=== PATIENT | male | born 1975 | race Caucasian/White ===

== ENCOUNTER 2017-03-29 18:43 | Emergency (ER) | payer BC, OTHER ==
[2017-03-29 18:43] VITALS: BMI 22.5
[2017-03-29 19:06] VITALS: BP 115/77; PULSE 88; RESP 16; TEMP 98; O2SAT 98
[2017-03-29] MEDS ORDERED: Oxycodone/Acetaminophen 5/325 mg Tab PO STA (20:54)
--- NOTE | 2017-03-29 21:13 | CT ---
EXAM: CT Lumbar Spine Without Intravenous Contrast CLINICAL HISTORY: 42 years old, male; Pain; Low back pain TECHNIQUE: Axial computed tomography images of the lumbar spine without intravenous contrast. All CT scans at this facility use one or more dose reduction techniques, viz.: automated exposure control; ma/kV adjustment per patient size (including targeted exams where dose is matched to indication; i.e. head); or iterative reconstruction technique. Coronal and sagittal reformatted images were created and reviewed. COMPARISON: No relevant prior studies available. FINDINGS: Vertebrae: No acute fracture. Discs/spinal canal/neural foramina: Moderate degenerative disc disease at L2-L3 level. No significant spinal stenosis. Soft tissues: Unremarkable. IMPRESSION: 1. No fracture. 2. If back pain persists, consider MRI for further evaluation. 3. Incidental/non-acute findings are described above.
--- NOTE | 2017-03-29 21:32 | ED PDOC ---
Arrival/HPI - General Chief Complaint: Back Pain Time Seen by Provider: 03/29/17 19:10 Historian: Patient - History of Present Illness Narrative History of Present Illness (Text): 03/29/17 19:30 Ciaran Gilbert is a 42 year old male who presents to the Emergency department complaining of lower back pain. Patient states back pain is worse with bending and movement. 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 Patient also notes he played soccer a few days prior and believes he may have puller a muscle in her back. Patient now complaining of severe back pain. Patient denies any weakness/numbness/tingling in the extremity, saddle paresthesias, neck pain, headache, dizziness, or any other complaints. Symptom Onset: Gradual Symptom Course: Unchanged Activities at Onset: Light Context: Home Past Medical History - Provider Review Nursing Documentation Reviewed: Yes - Tetanus Immunization Tetanus Immunization: Unknown - Past Medical History Past Medical History: No Previous - Psychiatric Hx Psychophysiologic Disorder: No Hx Substance Use: Yes (CANNABIS) - Past Surgical History Past Surgical History: No Previous - Suicidal Assessment Feels Threatened In Home Enviroment: No Family/Social History - Physician Review Nursing Documentation Reviewed: Yes Family/Social History: Unknown Family HX Smoking Status: Light Smoker < 10 Cigarettes Daily Hx Alcohol Use: No Hx Substance Use: Yes (CANNABIS) Allergies/Home Meds Allergies/Adverse Reactions: Allergies No Known Allergies Allergy (Verified 03/29/17 19:01) Review of Systems - Physician Review All systems were reviewed & negative as marked: Yes - Review of Systems Constitutional: Normal. absent: Fevers Eyes: Normal ENT: Normal Respiratory: Normal. absent: SOB, Cough Cardiovascular: Normal. absent: Chest Pain Gastrointestinal: Normal. absent: Abdominal Pain, Diarrhea, Nausea, Vomiting Genitourinary Male: Normal. absent: Dysuria, Frequency, Hematuria, Urinary Output Changes Musculoskeletal: Back Pain. absent: Neck Pain Skin: Normal. absent: Rash Neurological: Normal. absent: Headache, Dizziness Endocrine: Normal Hemo/Lymphatic: Normal Psychiatric: Normal Physical Exam Vital Signs Reviewed: Yes Vital Signs Temp Pulse Resp BP Pulse Ox 03/29/17 19:05 98.0 F 88 16 115/77 98 Temperature: Afebrile Blood Pressure: Normal Pulse: Regular Respiratory Rate: Normal Appearance: Positive for: Well-Appearing, Non-Toxic, Comfortable Pain Distress: None Mental Status: Positive for: Alert and Oriented X 3 - Systems Exam Head: Present: Atraumatic, Normocephalic Pupils: Present: PERRL Extroacular Muscles: Present: EOMI Conjunctiva: Present: Normal Mouth: Present: Moist Mucous Membranes Neck: Present: Normal Range of Motion Respiratory/Chest: Present: Clear to Auscultation, Good Air Exchange. No: Respiratory Distress, Accessory Muscle Use Cardiovascular: Present: Regular Rate and Rhythm, Normal S1, S2. No: Murmurs Abdomen: Present: Normal Bowel Sounds. No: Tenderness, Distention, Peritoneal Signs Back: Present: Pain with Leg Raise (Pain with righ straight leg raising). No: Midline Tenderness, Paraspinal Tenderness Upper Extremity: Present: Normal Inspection. No: Cyanosis, Edema Lower Extremity: Present: Normal Inspection. No: Edema Neurological: Present: GCS=15, CN II-XII Intact, Speech Normal Skin: Present: Warm, Dry, Normal Color. No: Rashes Psychiatric: Present: Alert, Oriented x 3, Normal Insight, Normal Concentration Medical Decision Making ED Course and Treatment: 03/29/17 19:30 Impression: 42 year old male complaining of lower back pain, worse with movement and bending. Differential Diagnosis included but are not limited to: musculoskeletal pain Plan: -- CT Lumbar Spine w/o contrast -- Flexeril -- Percocet -- Toradol -- Reassess and disposition Prior Visits: Notes and results from previous visits were reviewed. Progress Notes: 03/29/17 21:10 CT Lumbar Spine shows: Vertebrae: No acute fracture. Discs/spinal canal/neural foramina: Moderate degenerative disc disease at L2-L3 level. No significant spinal stenosis. Soft tissues: Unremarkable. IMPRESSION: 1. No fracture. 2. If back pain persists, consider MRI for further evaluation. 3. Incidental/non-acute findings are described above. 03/29/17 21:50 On re-evaluation, patient feels better and is in no acute distress. I have discussed the results and plan with the patient, who expresses understanding. Patient in agreement with plan to be discharged home. Patient is stable for discharge. Patient was instructed to follow up with physician or return if symptoms worsen or new concerning symptoms arise. 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 Yes Location Upper or Lower Lower Pain Location Body Site Back Description Description Constant IM Administration Charges Document 03/29/17 19:48 CNR (Rec: 03/29/17 19:48 CNR [id number]) Charges for Administration # of IM Administrations 1 Oxycodone/Acetaminophen (Percocet 5/325 Mg Tab) 1 tab PO STAT STA Stop: 03/29/17 20:55 Last Admin: 03/29/17 21:05 Dose: 1 tab MAR Pain Assessment Document 03/29/17 21:05 CNR (Rec: 03/29/17 21:06 CNR [id number]) Pain Reassessment Is this a pain reassessment? Yes - Scribe Statement The provider has reviewed the documentation as recorded by the Scribkorin Pereira Provider Scribe Attestation: All medical record entries made by the Scribe were at my direction and personally dictated by me. I have reviewed the chart and agree that the record accurately reflects my personal performance of the history, physical exam, medical decision making, and the department course for this patient. I have also personally directed, reviewed, and agree with the discharge instructions and disposition. Disposition/Present on Arrival - Present on Arrival History of DVT/PE: No History of Uncontrolled Diabetes: No Urinary Catheter: No History of Decub. Ulcer: No History Surgical Site Infection Following: None - Disposition Diagnosis: Back pain Disposition: HOME/ ROUTINE Disposition Time: 21:50 Discharge Instructions (ExitCare): Back Pain (ED) Prescriptions: Cyclobenzaprine [Cyclobenzaprine HCl] 10 mg PO TID #21 tab oxyCODONE/Acetaminophen [Percocet 5/325 mg Tab] 1 ea PO QID #8 tab Referrals: PCP,NO [Primary Care Provider] - Follow up with primary Forms: [employer] (Kyrgyz)
== END 2017-03-29 21:55 | disposition home or self-care (01) ==
LOC: ED 18:43
DX: M54.5 Low back pain (principal)
CPT/HCPCS: 72131; 96372; 99283; J1885

== ENCOUNTER 2017-09-13 10:38 | Emergency (ER) | payer BC ==
[2017-09-13 10:38] VITALS: BMI 22.5
[2017-09-13 10:54] VITALS: RESP 18; TEMP 98.3
--- NOTE | 2017-09-13 10:59 | ED PDOC ---
Arrival/HPI - General Chief Complaint: Palpitations Time Seen by Provider: 09/13/17 10:49 Historian: Patient - History of Present Illness Narrative History of Present Illness (Text): 09/13/17 11:15 42 year old male, whose PMH includes atrial fibrillation and cardiac ablation ~ 10 years ago, who presents to the emergency department today complaining of significant palpitations since one day ago, associated with lightheadedness. Patient reports the symptoms continued this morning and states he possibly passed out. Patient also complaints of being diaphoretic, having left arm numbness and tingling, and questionable nausea. He denies any chest tightness, fever, chills, vomiting, abdominal pain, fever, headache, shortness of breath, or other complaints. Patient notes being under a lot of stress, working non- stop for the past 4 days. pt denied CP. pt is here for further eval. PCP: None Fitness Leader: None patient's PMH in regards to cardiac ablation, was ~ 10 years ago in [place] and has not had any f/u since then. Patient also notes stopping Warfarin and Metoprolol since success of ablation. Social history includes patient smoking half a pack per day, no drinking, and occasional caffeine. denies any substance use. Time/Duration: 24 hours Symptom Onset: Sudden Symptom Course: Unchanged Activities at Onset: Rest Context: Home Past Medical History - Provider Review Nursing Documentation Reviewed: Yes - Travel History Have you recently traveled outside [place] w/in the past 3 mons?: No - Past History Past History: No Previous - Infectious Disease Hx of Infectious Diseases: None - Tetanus Immunization Tetanus Immunization: Unknown - Past Medical History Past Medical History: No Previous - Cardiac Hx Atrial Fibrillation: Yes - Psychiatric Hx Psychophysiologic Disorder: No Hx Substance Use: Yes (CANNABIS) - Past Surgical History Past Surgical History: No Previous - Surgical History Other/Comment: Ablasion for A-fib - Suicidal Assessment Feels Threatened In Home Enviroment: No Family/Social History - Physician Review Nursing Documentation Reviewed: Yes Family/Social History: Unknown Family HX Smoking Status: Light Smoker < 10 Cigarettes Daily Hx Alcohol Use: Yes Frequency of alcohol use: Socially Hx Substance Use: Yes (CANNABIS) Hx Substance Use Treatment: No Allergies/Home Meds Allergies/Adverse Reactions: Allergies No Known Allergies Allergy (Verified 09/13/17 10:44) Review of Systems - Review of Systems Constitutional: absent: Fevers Eyes: Normal ENT: absent: Sinus Congestion Respiratory: absent: SOB Cardiovascular: Palpitations Gastrointestinal: Nausea. absent: Abdominal Pain, Vomiting Genitourinary Male: absent: Dysuria Musculoskeletal: absent: Back Pain Skin: absent: Rash Neurological: Dizziness, Other (left arm numbness and tingling ). absent: Headache Endocrine: Diaphoresis Hemo/Lymphatic: Normal Psychiatric: Normal Physical Exam - Physical Exam Narrative Physical Exam (Text): 09/13/17 General: alert/awake, GCS = 15, oriented x 3, resting in bed, uncomfortable, cooperative, interactive; NAD (+) anxious appearing Head: NC/AT EYE: PERRLA, EOMI, sclera anicteric, no nystagmus, no photophobia; visual field intact b/l Facial: WNL Oral: uvula/tongue are midline, no exudate/lesions, no drooling/stridor, no dysphonia; intact dentitions NECK: intact ROM, no midline tenderness, no nuchal rigidity, no meningeal signs ; no step off Chest: CTA b/l, no w/r/r; no tachypenia, no accessory muscle use noted Chest Wall: no crepitus, no lesions, no gross deformities, no focal tenderness Cardiac: +S1, +S2, (+) tachycardia, (+) irregular rate; no murmur Abdominal: +BS, soft/nd/nt, well nourished patient; no masses/rebound/guarding/ rigidity; no dash's sign, no mcburney's point tenderness Extremities: intact ROM, strength 5/5 grossly intact in all limbs, neurovasc intact b/l; + ambulatory; reflex +2/2 BACK: no step off, no midline tenderness, NO crepitus, no gross deformities noted; Intact ROM SKIN: cap refill < 1 sec, no ulcerations, no petechiae, no rashes NEURO: CNII-XII WNL, no facial asymmetries, no slurr speech, oriented x 3 NIH stroke scale ~ 0 Psych: normal insight, (+) anxious affect; follows command with ease and cooperative Vital Signs Reviewed: Yes Vital Signs Temp Pulse Resp BP Pulse Ox 09/13/17 12:22 64 18 102/75 99 09/13/17 11:14 116 H 100/87 09/13/17 10:42 98.3 F 86 18 100/67 100 Temperature: Afebrile Blood Pressure: Normal Pulse: Tachycardic Respiratory Rate: Normal Appearance: Positive for: Well-Appearing, Non-Toxic, Uncomfortable, Other ( jittery/weakness, anxious, uncomfortable, NAD) Pain Distress: None Mental Status: Positive for: Alert and Oriented X 3 - Systems Exam Head: Present: Atraumatic, Normocephalic Medical Decision Making ED Course and Treatment: 09/13/17 Impression: 42 year old male with anzious affect, tachycardia, irregularly irregular rhythm , and appears anxious complaining of significant palpitations since one day ago. Differential Diagnosis included but are not limited to: atrial fibrillation r/ o dehydration r/o ACS; questionable thyroid disorder Plan: -- EKG -- Chest X-ray -- Labs -- Urinalysis -- Aspirin, Cardizem, and Sodium Chloride -- Reassess and disposition Progress Notes: 09/13/17 1245pm pt is doing well after cardizem 1 bolus, pt's rate is now controlled; rhythm remains irregular pt states he is much more comfortable pt denied any pain/chest pain/shortness of breath pt is made aware of his medical results given his abnl rhythm as well as lab results/symptoms, recommended patient for admission/observation; pt wants to think about it 1300 pt now states he wants to leave AMA vital signs are stable he is aware that potential life-threatening illness remains and pt can lose limb /or worse case, can he is aware that he needs to see HIS doctor as soon as possible he is aware that if he changes his mind, he is encouraged to return to ED immediately for further care/management patient expressed understanding Re-evaluation Time: 12:55 Reassessment Condition: Re-examined, Improved - Critical Care Critical Care Minutes: 45 minutes Critical Care Time: Excluding Proc Time Narrative Critical Care (Text): 09/13/17 13:21 critical care time: 45min, excluding procedure time, excluding time teaching residents/students/mid-level providers; including initial eval/diagnosis, diagnostic interpretation, re-eval, consultations, final disposition - Lab Interpretations Lab Results: 09/13/17 11:10 09/13/17 11:10 Lab Results 09/13/17 11:10: TSH 3rd Generation 2.54 09/13/17 11:10: Sodium 141, Potassium 4.2, Chloride 102, Carbon Dioxide 27, Anion Gap 16, BUN 12, Creatinine 0.9, Est GFR ( Amer) > 60, Est GFR (Non- Af Amer) > 60, Random Glucose 137 H, Calcium 10.2, Total Bilirubin 1.8 H, AST 28 , ALT 30, Alkaline Phosphatase 72, Troponin I < 0.01, NT-Pro-B Natriuret Pep 1920 H, Total Protein 7.6, Albumin 4.6, Globulin 3.0, Albumin/Globulin Ratio 1.5 09/13/17 11:10: PT 11.8, INR 1.03, APTT 32.2 09/13/17 11:10: WBC 6.5, RBC 6.44 H, Hgb 19.5 H*, Hct 52.6 H, MCV 81.7, MCH 30.3 , MCHC 37.1 H, RDW 13.2, Plt Count 187, MPV 10.3, Gran % 52.0, Lymph % (Auto) 37.1 H, [place] % (Auto) 8.2 H, Eos % (Auto) 1.8, Baso % (Auto) 0.9, Gran # 3.38, Lymph # (Auto) 2.4, [place] # (Auto) 0.5, Eos # (Auto) 0.1, Baso # (Auto) 0.06 I have reviewed the lab results: Yes Interpretation: Abnormal lab values (elevated BNP) - RAD Interpretation Narrative RAD Interpretations (Text): 09/13/17 12:25 Chest X-ray: Creator : Maicol Floyd MD FINDINGS: LUNGS: No active pulmonary disease. PLEURA: No significant pleural effusion identified, no pneumothorax apparent. CARDIOVASCULAR: Normal. OSSEOUS STRUCTURES: No significant abnormalities. VISUALIZED UPPER ABDOMEN: Normal. OTHER FINDINGS: None. 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 Rate : 130 BPM Rhythm : Atrial fibrillation Interpretation : Normal axis. No ectopy. Non-specific ST-T wave changes. Incomplete RBBB. Abnormal EKG. NO old ekg to compare with Second EKG s/p Cardizem EKG: Ordered, reviewed, and independently interpreted the EKG. Rate : 60 BPM Rhythm : atrial fibrillation Interpretation : Normal axis. + ectopy. PT noted V4, V5, and V6. No ST changes. Abnormal EKG. Interpreted by ED Physician: Yes Type: 12 lead EKG Comparison: No previous EKG avail. - Medication Orders Current Medication Orders: Discontinued Medications Aspirin (Aspirin) 325 mg PO STAT STA Stop: 09/13/17 10:58 Last Admin: 09/13/17 11:14 Dose: 325 mg Diltiazem HCl (Cardizem) 20 mg IVP STAT STA Stop: 09/13/17 10:57 Last Admin: 09/13/17 11:14 Dose: 20 mg IVP Administration Document 09/13/17 11:14 EW (Rec: 09/13/17 11:15 [email or web address] Charges for Administration # of IVP Administrations 1 MAR Pulse and Blood Pressure Document 09/13/17 11:14 EW (Rec: 09/13/17 11:15 [email or web address]) Pulse Pulse Rate (60-90) 116 Blood Pressure Blood Pressure (100/60-150/90) 100/87 Sodium Chloride (Sodium Chloride 0.9%) 500 mls @ 999 mls/hr IV .Q31M STA Stop: 09/13/17 11:27 Last Admin: 09/13/17 11:14 Dose: 999 mls/hr eMAR Start Stop Document 09/13/17 11:14 EW (Rec: 09/13/17 11:14 [email or web address]) Intravenous Solution Start Date 09/13/17 Start Time 11:14 End Date 09/13/17 End time 11:44 Total Infusion Time 30 - Scribe Statement The provider has reviewed the documentation as recorded by the Pedrito Silva Provider Scribe Attestation: All medical record entries made by the Scribe were at my direction and personally dictated by me. I have reviewed the chart and agree that the record accurately reflects my personal performance of the history, physical exam, medical decision making, and the department course for this patient. I have also personally directed, reviewed, and agree with the discharge instructions and disposition. Disposition/Present on Arrival - Present on Arrival Any Indicators Present on Arrival: No History of DVT/PE: No History of Uncontrolled Diabetes: No Urinary Catheter: No History of Decub. Ulcer: No History Surgical Site Infection Following: None - Disposition Have Diagnosis and Disposition been Completed?: Yes Diagnosis: Atrial fibrillation, Weakness, Near syncope Disposition: AGAINST MEDICAL ADVICE Disposition Time: 13:06 Patient Problems: Current Active Problems Problem Status Onset Atrial fibrillation Acute Weakness Acute Condition: STABLE Discharge Instructions (ExitCare): Weakness (ED), Atrial Fibrillation (DC) Print Language: ESTONIAN Additional Instructions: you are leaving against medical advice potential life-threatening illness remains and pt can lose limb/or worse case, can you are to see your doctor as soon as possible if you change your mind, you are encouraged to return to ED immediately for further care/management Prescriptions: Aspirin [Adult Aspirin Regimen] 81 mg PO DAILY #30 tablet. Metoprolol Succinate XL [Toprol XL] 25 mg PO DAILY #14 tab Referrals: Guicho Turner MD [Staff Provider] - Follow up with primary Héctor Moya MD [Staff Provider] - Follow up with primary [facility] [Outside] - Follow up with primary [facility] [Outside] - Follow up with primary [facility] [place] [place] [Outside] - Follow up with primary Forms: [employer] (Kiswahili)
[2017-09-13] MEDS: Sodium Chloride 0.9% 500 ML IV STA (11:14)
[2017-09-13 11:24] LABS: BASO # 0.06 K/mm3 (0.0-2.0); BASO % 0.9 % (0.0-3.0); EOS # 0.1 (0.0-0.7); EOS % 1.8 % (1.5-5.0); GRAN # 3.38 (1.4-6.5); LYMPH # 2.4 (1.2-3.4); LYMPH % 37.1 % (22.0-35.0); MEAN CELL VOLUME 81.7 fl (80.0-105.0); MEAN CORPUSCULAR HEMOGLOBIN 30.3 pg (25.0-35.0); MEAN CORPUSCULAR HGB CONC 37.1 g/dl (31.0-37.0); MEAN PLATELET VOLUME 10.3 fl (7.0-11.0); MONO # 0.5 (0.1-0.6); MONO % 8.2 % (1.0-6.0); RBC 6.44 10^6/uL (3.5-6.1); RED CELL DISTRIBUTION WIDTH 13.2 % (11.5-14.5); WHITE BLOOD COUNT 6.5 10^3/ul (4.5-11.0)
[2017-09-13 11:25] LABS: HEMOGLOBIN 19.5 g/dL (14.0-18.0)
[2017-09-13 11:33] LABS: INR 1.03; PARTIAL THROMBOPLASTIN TIME 32.2 Seconds (25.1-36.5); PROTHROMBIN TIME 11.8 SECONDS (9.4-12.5)
[2017-09-13 11:35] LABS: ALB/GLOB RATIO 1.5 (1.1-1.8); ALBUMIN 4.6 g/dL (3.0-4.8); ALT/SGPT 30 U/L (7-56); AST/SGOT 28 U/L (17-59); BLOOD UREA NITROGEN 12 mg/dL (7-21); CALCIUM 10.2 mg/dL (8.4-10.5); GFR AFRICAN-AMERICAN > 60; GFR NON-AFRICAN AMERICAN > 60
[2017-09-13 11:45] LABS: B-TYPE NATRIURETIC PEPTIDE 1920 pg/mL (0-450); TROPONIN I < 0.01 ng/mL
--- NOTE | 2017-09-13 12:25 | RAD ---
Date of service: 09/13/2017 HISTORY: palpitations COMPARISON: No prior. FINDINGS: LUNGS: No active pulmonary disease. PLEURA: No significant pleural effusion identified, no pneumothorax apparent. CARDIOVASCULAR: Normal. OSSEOUS STRUCTURES: No significant abnormalities. VISUALIZED UPPER ABDOMEN: Normal. OTHER FINDINGS: None. IMPRESSION: No active disease.
[2017-09-13 13:28] VITALS: BP 97/57; PULSE 76; O2SAT 97
--- NOTE | 2017-09-13 14:56 | CARD ---
APPROVED REPORT Date of service: 09/13/2017 EKG Measurement Heart [id number] <Conclusion> Atrial fibrillation Possible Anterior infarct, age undetermined Abnormal ECG
--- NOTE | 2017-09-13 14:57 | CARD ---
APPROVED REPORT Date of service: 09/13/2017 EKG Measurement Heart [id number] <Conclusion> Atrial fibrillation with rapid ventricular response Incomplete right bundle branch block Abnormal ECG
== END 2017-09-13 13:27 | disposition left against medical advice (07) ==
LOC: ED 10:38
DX: I48.91 Unspecified atrial fibrillation (principal); R55 Syncope and collapse; R53.1 Weakness
CPT/HCPCS: 71045; 80053; 83880; 84443; 84484; 85025; 85610; 85730; 93005; 96374; 99284; J7040

== ENCOUNTER 2018-01-29 09:48 | Emergency (ER) | payer BC ==
[2018-01-29 09:48] VITALS: BMI 22.5
[2018-01-29 10:07] VITALS: RESP 18; TEMP 98.3
--- NOTE | 2018-01-29 11:06 | ED PDOC ---
Arrival/HPI <Sushma Guzmán - Last Filed: 01/29/18 13:26> - General Historian: Patient - History of Present Illness Narrative History of Present Illness (Text): 01/29/18 10:57 42M past medical history of AFib, presents with a 4 days hx of fevers, chills, arthralgias and night sweats. The symptoms have been constant and unremitting with ibuprofen. His baby daughter and mother in law with whom he lives are also sick with similar symptoms. Pt has not been sick in a very long time. Pt denies vomiting, diarrhea. Pt did not get his flu shot this year. 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 ROS Pos+ sick contacts fevers, chills, night sweats, arthralgia, myalgia, Neg- vomiting, diarrhea, dysuria, shortness of breath, chest pain 01/29/18 11:23 <Don Boateng - Last Filed: 01/29/18 15:46> - General Chief Complaint: Fever Time Seen by Provider: 01/29/18 10:10 Past Medical History - Provider Review Nursing Documentation Reviewed: Yes - Past History Past History: No Previous - Infectious Disease Hx of Infectious Diseases: None - Tetanus Immunization Tetanus Immunization: Unknown - Past Medical History Past Medical History: No Previous - Cardiac Hx Atrial Fibrillation: Yes (Cardioversion) - Psychiatric Hx Psychophysiologic Disorder: No Hx Substance Use: Yes (CANNABIS) - Past Surgical History Past Surgical History: No Previous - Surgical History Other/Comment: Ablasion for A-fib - Suicidal Assessment Feels Threatened In Home Enviroment: No <Don Boateng - Last Filed: 01/29/18 15:46> Family/Social History - Physician Review Nursing Documentation Reviewed: Yes Family/Social History: Unknown Family HX Smoking Status: Light Smoker < 10 Cigarettes Daily Hx Alcohol Use: Yes Hx Substance Use: Yes (CANNABIS) Hx Substance Use Treatment: No <Don Boateng - Last Filed: 01/29/18 15:46> Allergies/Home Meds <Sushma Guzmán - Last Filed: 01/29/18 13:26> <Don Boateng - Last Filed: 01/29/18 15:46> Allergies/Adverse Reactions: Allergies No Known Allergies Allergy (Verified 01/29/18 10:05) Review of Systems - Review of Systems Constitutional: Fevers, Night Sweats Eyes: Normal ENT: Normal Respiratory: Cough Cardiovascular: Normal. absent: Chest Pain, Palpitations, Edema, Calf Pain, GEORGE, Orthopnea, SY, Syncope, Other Gastrointestinal: absent: Abdominal Pain, Stool Changes, Diarrhea, Nausea, Vomiting, Hematemesis, Anorexia, Food Intolerance Musculoskeletal: Arthralgias, Myalgias Skin: Normal Neurological: Normal Endocrine: Normal Psychiatric: Normal <Don Boateng - Last Filed: 01/29/18 15:46> Physical Exam Vital Signs Temp Pulse Resp BP Pulse Ox 01/29/18 13:07 98.3 F 85 18 135/70 97 01/29/18 13:04 98.3 F 85 18 135/70 97 01/29/18 10:06 98.3 F 86 18 109/75 98 <Sushma Guzmán - Last Filed: 01/29/18 13:26> Vital Signs Reviewed: Yes Vital Signs Temp Pulse Resp BP Pulse Ox 01/29/18 10:06 98.3 F 86 18 109/75 98 Temperature: Afebrile Pulse: Regular Appearance: Positive for: Non-Toxic Mental Status: Positive for: Alert and Oriented X 3 - Systems Exam Head: Present: Atraumatic, Normocephalic Pupils: Present: PERRL Extroacular Muscles: Present: EOMI Conjunctiva: Present: Normal Mouth: Present: Moist Mucous Membranes Pharnyx: No: EXUDATE, TONSILS ENLARGED Nose (Internal): No: Edematous, Rhinorrhea Respiratory/Chest: Present: Rales (RUL) Cardiovascular: Present: Normal S1, S2 Abdomen: Present: Normal Bowel Sounds. No: Tenderness Neurological: Present: GCS=15, CN II-XII Intact Skin: Present: Warm, Dry, Normal Color. No: Rashes Psychiatric: Present: Alert, Oriented x 3 <Don Boateng - Last Filed: 01/29/18 15:46> Medical Decision Making ED Course and Treatment: A 42 year old male presents to the emergency department with a complaint of fever, chills, arthralgias, and nights sweats. In agreement with resident note, which includes further HPI details. Patient was seen and evaluated with resident, came up with plan and treatment together. - Lab Interpretations Lab Results: Lab Results 01/29/18 11:20: Influenza Typ A,B (EIA) Pos for influenza a H - RAD Interpretation Radiology Orders: 01/29/18 10:54 CHEST TWO VIEWS (PA/LAT) [RAD] Stat - Medication Orders Current Medication Orders: Discontinued Medications Oseltamivir Phosphate (Tamiflu Susp) 75 mg PO DAILY TITUS; Protocol Last Admin: 01/29/18 13:05 Dose: 75 mg <Sushma Guzmán - Last Filed: 01/29/18 13:26> ED Course and Treatment: 01/29/18 12:41 Chest X-ray no acute pathology, rapid flu positive - RAD Interpretation Radiology Orders: 01/29/18 10:54 CHEST TWO VIEWS (PA/LAT) [RAD] Stat - Medication Orders Current Medication Orders: 01/29/18 12:43 stat dose of Tamiflu 75mg PO <Don Boateng - Last Filed: 01/29/18 15:46> - Scribe Statement The provider has reviewed the documentation as recorded by the [place] Provider Scribe Attestation: All medical record entries made by the Scribe were at my direction and personally dictated by me. I have reviewed the chart and agree that the record accurately reflects my personal performance of the history, physical exam, m edical decision making, and the department course for this patient. I have also personally directed, reviewed, and agree with the discharge instructions and disposition. <Sushma Guzmán - Last Filed: 01/29/18 13:26> Disposition/Present on Arrival <Sushma Guzmán - Last Filed: 01/29/18 13:26> - Present on Arrival Any Indicators Present on Arrival: No History of DVT/PE: No History of Uncontrolled Diabetes: No Urinary Catheter: No History of Decub. Ulcer: No History Surgical Site Infection Following: None - Disposition Have Diagnosis and Disposition been Completed?: Yes Disposition Time: 12:43 Patient Plan: Discharge <Don Boateng - Last Filed: 01/29/18 15:46> - Disposition Diagnosis: Influenza A Disposition: HOME/ ROUTINE Condition: GOOD Discharge Instructions (ExitCare): Flu, Adult (DC) Additional Instructions: SOHA LAI, thank you for letting us take care of you today. Your provider was Sushma Guzmán MD and you were treated for FEVER. The emergency medical care you received today was directed at your acute symptoms. If you were prescribed any medication, please fill it and take as directed. It may take several days for your symptoms to resolve. Return to the Emergency Department if your symptoms worsen, do not improve, or if you have any other problems. Please contact your doctor or call one of the physicians/clinics you have been referred to that are listed on the Patient Visit Information form that is included in your discharge packet. Bring any paperwork you were given at discharge with you along with any medications you are taking to your follow up visit. Our treatment cannot replace ongoing medical care by a primary care provider outside of the emergency department. Thank you for allowing the [facility] team to be part of your care today. If you had an X-Ray or CT scan: A Radiologist will review the ED reading if any change in treatment is needed we will contact you. If you had a blood, urine, or wound culture: It will take several days for the results, if any change in treatment is needed we will contact you. If you had an STI test: It will take 48 hours for the results. Please call after 1 week if you have not heard back. Prescriptions: Oseltamivir Cap [Tamiflu] 75 mg PO BID #9 cap Referrals: [facility] [Outside] - Follow up with primary [facility] [Outside] - Follow up with primary Jocelyn [facility] MD [Medical Doctor] - Follow up with primary Forms: [employer] (Serbian)
[2018-01-29] MEDS ORDERED: Oseltamivir 6 MG/ML PO SCH (12:45)
[2018-01-29 13:04] VITALS: BP 135/70; PULSE 85; O2SAT 97
--- NOTE | 2018-01-29 14:49 | RAD ---
Date of service: 01/29/2018 HISTORY: cough, R U L wheeze COMPARISON: Portable chest 09/13/2017. TECHNIQUE: Chest PA and lateral FINDINGS: LUNGS: No active pulmonary disease. PLEURA: No significant pleural effusion identified. No pneumothorax apparent. CARDIOVASCULAR: No aortic atherosclerotic calcification present. Normal cardiac size. No pulmonary vascular congestion. OSSEOUS STRUCTURES: No significant abnormalities. VISUALIZED UPPER ABDOMEN: Normal. OTHER FINDINGS: None. IMPRESSION: No interval acute cardiopulmonary disease appreciated.
== END 2018-01-29 13:07 | disposition home or self-care (01) ==
LOC: ED 09:48
DX: J10.1 Influenza due to other identified influenza virus with other respiratory manifestations (principal)